=== PATIENT | male | born 1965 | race Caucasian/White ===

== ENCOUNTER 2019-05-21 20:17 | Emergency (ER) | payer OTHER ==
[~2019-05-21] VITALS: Ht 175.3 cm; Wt 122.7 kg
[2019-05-21 20:17] VITALS: BP 164/89
[2019-05-21] MEDS ORDERED: IRBE150T12 PO (21:03)
[2019-05-21] MEDS ORDERED: IRBE150T14 PO (21:03)
[2019-05-21] MEDS ORDERED: LORazepam 1 MG TAB PO STA (21:13)
[2019-05-21] MEDS ORDERED: ATIV1TAB10 PO (21:20)
== END 2019-05-21 21:32 | disposition home or self-care (01) ==
LOC: M ED 20:17
DX: Z76.0 Encounter for issue of repeat prescription (principal); F41.9 Anxiety disorder, unspecified; I10 Essential (primary) hypertension; Z79.899 Other long term (current) drug therapy